=== PATIENT | male | born 1985 | race Two or more races ===

== ENCOUNTER 2017-02-05 20:22 | Emergency (ER) | payer OTHER ==
[~2017-02-05] VITALS: Ht 182.9 cm; Wt 99.8 kg
--- NOTE | 2017-02-05 20:24 | NUR ---
PT BIBRA TO ER BED 06. MULTIPLE COMPLAINTS, PT IS [employer]. C/O BLE WEAKNESS, SORE THROAT X TODAY. PT APPEARS ANXIOUS. DENIES CHEST PAIN. PLACED ON MONITOR. AWAITING MD FARIA.
--- NOTE | 2017-02-05 21:44 | NUR ---
dr flaherty at bedside for blood draw.
--- NOTE | 2017-02-05 21:52 | NUR ---
iv line started blood drawn and sent to lab.
--- NOTE | 2017-02-05 22:02 | NUR ---
radiology at bedside for chest xray.
--- NOTE | 2017-02-05 22:03 | NUR ---
dr anguiano at bedside for eval.
[2017-02-05 22:05] LABS: BASOPHILS % (AUTO) 0.2 % (0.0-2.0); EOSINOPHILS % (AUTO) 0.1 % (0.0-6.0); HEMATOCRIT 49 % (39-51); HEMOGLOBIN 16.1 g/dL (13.5-17.5); LYMPHOCYTES % (AUTO) 8.8 % (20.0-44.0); MEAN CORPUSCULAR HEMOGLOBIN 28 PG (26.0-33.0); MEAN CORPUSCULAR HGB CONC 33 g/dl (31.0-36.0); MEAN CORPUSCULAR VOLUME 84 fL (80-96); MONOCYTES # (AUTO) 0.9 /CMM (0.1-1.30); MONOCYTES % (AUTO) 7.9 % (2.0-12.0); NEUTROPHILS # (AUTO) 9.4 /CMM (1.8-8.9); PLATELET COUNT (AUTO) 190 /CMM (150-450); RDW COEFFICIENT OF VARIATION 13.2 (11.5-15.0); RED BLOOD CELL COUNT(AUTO) 5.81 MIL/uL (4.5-6.0); WHITE BLOOD COUNT (AUTO) 11.3 K/uL (4.3-11.0)
[2017-02-05 22:11] LABS: CALCIUM, SERUM 9.5 mg/dL (8.5-10.1); CARBON DIOXIDE 29 mmol/L (21-32); CHLORIDE 104 mmol/L (98-107); CREATININE 1.3 mg/dL (0.6-1.3); GLUCOSE 126 mg/dL (74-106); POTASSIUM 3.8 mmol/L (3.5-5.1); SODIUM SERUM 143 mmol/L (136-145); UREA NITROGEN, BLOOD 11 mg/dL (7-18)
[2017-02-05] MEDS ORDERED: ACETAMINOPHEN ES 500 MG TABLET ONE (22:17)
[2017-02-05] MEDS ORDERED: KETOROLAC TROMETHAMINE INJ 30 MG/ML VIAL ONE (22:17)
[2017-02-05 22:20] LABS: TROPONIN I < 0.017 ng/mL (0.00-0.056)
[2017-02-05 22:25] LABS: INR 0.99 (0.87-1.13); PROTHROMBIN TIME 10.3 SECS (9.5-12.7)
[2017-02-05] MEDS ORDERED: ACETAMINOPHEN ES 500 MG TABLET PO ONE (22:30)
[2017-02-05] MEDS ORDERED: IV NS 0.9% 1,000 ML BAG IV ONE (22:30)
[2017-02-05] MEDS ORDERED: KETOROLAC TROMETHAMINE INJ 30 MG/ML VIAL IV ONE (22:30)
--- NOTE | 2017-02-05 23:44 | NUR ---
Patient discharged to home in stable condition. Written and verbal after care instructions given. Patient verbalizes understanding of instruction.IV removed. Catheter intact and site benign. Pressure and 4x4 applied to site. No bleeding noted.
[2017-02-05 23:45] VITALS: BP 128/77
== END 2017-02-05 23:46 | disposition home or self-care (01) ==
LOC: ER 20:24
DX: J02.9 Acute pharyngitis, unspecified (principal); R50.9 Fever, unspecified; R00.0 Tachycardia, unspecified; R53.1 Weakness; R42 Dizziness and giddiness; R79.1 Abnormal coagulation profile
CPT/HCPCS: 36415; 71010; 80048; 80305; 84484; 85025; 85730; 87804; 93005; 96374; 99285; A4606; J1885; J7030; Z7610; 87400